=== PATIENT | male | born 1965 | race Caucasian/White ===

== ENCOUNTER 2021-07-29 14:52 | Outpatient (CLI) | payer OTHER, SELFPAY ==
--- NOTE | 2021-07-29 14:58 | XR_ITS ---
WS: [id number] KUB, AP view, 07/29/2021 Clinical Data: ABDOMINAL PAIN/ACUTE BACK PAIN Comparison: None. Findings: No abnormal intraabdominal masses or calcifications are seen. There is no dilatated small bowel or ev idence of obstruction. There are phleboliths in the true pelvis. There are clips in the right upper quadrant from a cholecys tectomy. XR/XR KUB [id number] Impression: Negative KUB.
== END 2021-07-29 14:53 | disposition home or self-care (01) ==
LOC: RAD 14:56
PROVIDERS: PCP Electrodiagnostic Medicine; Visit Provider Electrodiagnostic Medicine
DX: R10.9 Unspecified abdominal pain (principal)
CPT/HCPCS: 74018

== ENCOUNTER 2021-12-23 11:12 | Outpatient (CLI) | payer OTHER, SELFPAY ==
--- NOTE | 2021-12-23 11:27 | XRR_ITS ---
PROCEDURE INFORMATION: Exam: XR Chest Exam date and time: 12/23/2021 11:27 AM Age: 56 years old Clinical indication: Prior surgery; Surgery type: Gb; Patient HX: Cough for 1 1/2 years, worse after covid 1 1/2 months; Additional info: Cough, mob TECHNIQUE: Imaging protocol: XR of the chest. Views: 2 views. COMPARISON: CR XR KUB [id number] 07/29/2021 3:03 PM FINDINGS: Lungs: Unremarkable. No consolidation. Pleural spaces: Unremarkable. No pleural effusion. No pneumothorax. Heart/Mediastinum: Unremarkable. No cardiomegaly. Bones/joints: Unremarkable. XR/XR chest 2V* [id number] IMPRESSION: No acute findings.
== END 2021-12-23 11:13 | disposition home or self-care (01) ==
LOC: RAD 11:18
PROVIDERS: PCP Electrodiagnostic Medicine; Visit Provider Clinical Nurse Specialist Adult Health
DX: R05.9 Cough, unspecified (principal)
CPT/HCPCS: 71046

== ENCOUNTER 2024-02-20 07:07 | Outpatient (CLI) | payer OTHER, SELFPAY ==
--- NOTE | 2024-02-20 07:16 | CT_ITS ---
WS: [id number] CT ABDOMEN AND PELVIS WITH AND WITHOUT CONTRAST HISTORY: COLITIS, RIGHT pain with bloody stools. TECHNIQUE: Unenhanced 5 mm axial imaging first performed through the abdomen. Post contrast imaging t hrough the abdomen and pelvis. Oral contrast has been provided. Sagittal and coronal reformats are s ubmitted. All CT scans at [facility] use at least one of these dose optimization techniques: automated exposure control; mA and/or kV adjustment per patient size (includes targeted exams where d ose is matched to clinical indication); or iterative reconstruction. CONTRAST: Omnipaque 350; 95 mL IV. DLP: 799.29 mGy.cm COMPARISON: None available. Lung bases are clear. Normal size heart. Moderate hiatal hernia. There is an additional very subtle a rosalind of increased soft tissue at the GE junction with mass effect upon the oral contrast in the stomac h. Neoplasm needs to be excluded. Vague area of masslike projection measures 2.6 x 2.2 cm. Remaining stomach is negative. Normal size liver. There are several too small to characterize hypodensities in the RIGHT lobe of the liver. No bile duct dilatation. Normal portal vein. Prior cholecystectomy. Normal spleen. Normal orozco creas. Normal adrenal glands. No renal obstruction or mass. No perinephric stranding. Mild atheroscle rosis aorta. No aneurysm. No ascites. There are a few small retroperitoneal lymph nodes which are not pathologically enlarged. No small bowel obstruction. There is some very mild wall thickening involving the cecum and ascending colon. There is no obstructive process or mass. Recommend additional evaluation by colonoscopy. Mode rate diverticular disease. No obstruction. Normal appendix. Abdominal wall is intact. Small distended urinary bladder with prostate gland enlargement and encroachment. Prostate gland is m ildly heterogeneous. CT/CT abdomen pelvis wo/w [id number] IMPRESSION: 1. Possible soft tissue mass at the GE junction. Masslike structure measuring 2.6 x 2.2 cm at the GE junction with displacement of the adjacent oral contrast . Recommend upper endoscopy to exclude neoplasm. 2. There are a few scattered hypodensities in the liver which are too small to characterize. Differential includes too small to characterize hepatic cysts ve rsus early metastatic disease. 3. Normal appendix. 4. Mild scattered areas of wall thickening involving the ascending and transve rse colon. No masslike structure or obstruction. Colon would be better evaluate d by colonoscopy. 5. Moderate diverticular disease without acute diverticulitis. 6. Prostate gland enlargement.
[2024-02-20] MEDS: iohexol 300 mg/mL 100 mL Btl IV ×2 (08:13→08:32)
== END 2024-02-20 07:08 | disposition home or self-care (01) ==
LOC: RAD 07:09
PROVIDERS: PCP Electrodiagnostic Medicine; Visit Provider Family Medicine
DX: K52.9 Noninfective gastroenteritis and colitis, unspecified (principal); K57.90 Diverticulosis of intestine, part unspecified, without perforation or abscess without bleeding; N40.0 Benign prostatic hyperplasia without lower urinary tract symptoms
CPT/HCPCS: 74178; Q9967

== ENCOUNTER 2024-08-02 16:27 | Outpatient (CLI) | payer OTHER, SELFPAY ==
--- NOTE | 2024-08-02 17:30 | MR_ITS ---
WS: [id number] MRI LEFT ELBOW WITHOUT CONTRAST. COMPARISON: Radiograph 08/02/2024 Multiplanar, multisequence imaging is performed without contrast. Complete tear of the biceps tendon with retraction. There is fluid at the radial tuberosity with no b iceps tendon insertion identified. Seen best on the sagittal images is a retracted redundant biceps t endon. Retraction of the tendon by approximately 7 cm. There is additional edema in the biceps muscle which is only partially visualized. There is fluid around the muscle and within the adjacent soft ti ssues. Radio brachialis tendon and muscle are negative. No additional tendon abnormality. There is no marrow edema or fracture. No significant joint effusion. The extensor and flexor tendons and the radial and ulnar collateral ligaments appear appropriate. No tears are identified. No loose bodies. MR/MR elbow LT wo con* [id number] IMPRESSION: 1. Complete tear of the biceps tendon from the radial tuberosity with retracti on at least 7 cm. 2. Large amount of edema and fluid in the visualized biceps muscle and adjacen t soft tissues. 3. No fractures.
== END 2024-08-02 16:28 | disposition home or self-care (01) ==
PROVIDERS: PCP Electrodiagnostic Medicine; Visit Provider Nurse Practitioner
DX: S46.212A Strain of muscle, fascia and tendon of other parts of biceps, left arm, initial encounter (principal); X58.XXXA Exposure to other specified factors, initial encounter
CPT/HCPCS: 73080; 73221

== ENCOUNTER 2024-08-08 06:00 | Outpatient (CLI) | payer OTHER, SELFPAY | END 2024-08-08 23:59 | disposition home or self-care (01) | LOC: SOT 08-10 10:07 | PROVIDERS: PCP Electrodiagnostic Medicine; Visit Provider Nurse Practitioner | DX: Z46.89 Encounter for fitting and adjustment of other specified devices (principal); S46.122D Laceration of muscle, fascia and tendon of long head of biceps, left arm, subsequent encounter; X58.XXXD Exposure to other specified factors, subsequent encounter | CPT/HCPCS: L3761 ==

== ENCOUNTER → 2024-08-08 16:02 | Outpatient (BNVA) | payer OTHER, SELFPAY | PROVIDERS: PCP Electrodiagnostic Medicine; Visit Provider Nurse Practitioner | DX: S46.212A Strain of muscle, fascia and tendon of other parts of biceps, left arm, initial encounter (principal); X58.XXXA Exposure to other specified factors, initial encounter | CPT/HCPCS: 36415; 80053; 81003; 85025 ==

== ENCOUNTER 2024-08-09 08:03 | Day surgery (SDC) | payer OTHER, SELFPAY ==
[2024-08-09] VITALS (11 sets, daily range): BP systolic 129–153; BP diastolic 76–98; PULSE 74–98; RESP 10–18; TEMP 36.3–36.7; O2SAT 95–99; BMI 26.6
[2024-08-09] MEDS: sodium chloride 0.9% 1,000 ML 30 ML IV (08:47)
[2024-08-09] MEDS: gabapentin 300 mg Capsule PO (08:49)
[2024-08-09] MEDS: CELEcoxib 200 mg Capsule 400 MG PO (08:49)
--- NOTE | 2024-08-09 08:58 | ANES.PREANE2 ---
Pre-Anesthetic Assessment Height/Weight: Height 5 ft 7 in Weight 170 lb Temp Pulse Resp BP Pulse Ox O2 Del Method 98.0 F 78 16 153/98 96 Room Air 08/09/24 08:24 08/09/24 08:24 08/09/24 08:24 08/09/24 08:24 08/09/24 08:24 08/09/24 08:24 Preop Diagnosis: Biceps tendon rupture Operation Date: 08/09/24 09:45 Proposed Procedures p LEFT DISTAL BICEPS TENDON REPAIR(Left) - Manuela Wilkerson MD Was Beta Anand taken within 24 hours: N/A Was Clonidine taken within 24 hours: N/A Last intake: Intake Last Liquid Date 08/08/24 Last Liquid Time 22:10 Last Solid Date 08/08/24 Last Solid Time 22:10 Social No alcohol and No tobacco Exam alert, oriented x 3, clear to auscultation bilaterally and regular rate & rhythm Airway Submandibular: within normal limits Cervical ROM: within normal limits Mallampati: Class II Dentition: full Anesthetic Plan ASA status: 2 Anesthesia: MAC and Regional (specify below) Other: Patient states that he wakes up combative from anesthesia NPO since yesterday History of GERD on omeprazole, hiatal hernia Labs 08/08/2024 reviewed and acceptable for procedure Patient denies any pulmonary issues METs greater than 4 Plan for MAC anesthetic with preop nerve block Medications/Allergies Home Medications Medication Instructions Recorded Confirmed Last Taken Type hydrocortisone acetate 25 mg 25 mg AZ BID 08/02/24 08/08/24 Unknown History rectal suppository (Anucort-HC) omeprazole 40 mg capsule,delayed 40 mg PO DAILY 08/02/24 08/08/24 08/08/24 History release range of motion elbow brace #1 ea 08/08/24 08/08/24 Unknown Rx Allergies Allergy/AdvReac Type Severity Reaction Status Date / Time No Known Allergies Allergy Unverified 08/08/24 15:08 Current Medications Generic Name Dose Route Start Last Admin Trade Name Freq PRN Reason Stop Dose Admin Sodium Chloride 1,000 mls @ 30 mls/hr 08/09/24 08:15 08/09/24 08:47 Sodium Chloride 0.9% IV 08/10/24 08:14 30 mls/hr .Q24H ASHELY Administration PFSH Anesthesia Social History Smoking and tobacco/nicotine status: never used tobacco/nicotine Data Anesthesia Cardiac Studies: No Data to Display
--- NOTE | 2024-08-09 09:20 | ANES.PROC ---
Anesthesia Procedures Procedure/Date: 08/09/24 Nerve Block ^: Nerve Block 1: Main Anesthesia: other (100mg fentanyl, 2mg versed) Time Out Performed: Yes Consent: requested by attending/covering physician and from patient Nerve block location: supraclavicular Anesthesia monitors applied: pulse oximetry, EKG, BP cuff and oxygen Nerve block position: supine Anesthetic Used: ropivicaine 0.5% Amount of anesthesia used (mL): 30 Ultrasound used to: recognize landmarks Nerve Stimulator Used?: Yes Interscalene/Femoral BLK: other needle (pjunk 4inch) Injection: neg aspiration of heme Patient Tolerated Procedure: well Complications: none Additional Comments: decadron 4mg added to block
--- NOTE | 2024-08-09 09:22 | SUR.PREOP ---
LEFT SUPRACLAVICULAR BLOCK DONE. 30ML/150MG ROPIVACAINE. PATIENT MONITORED ON EKG, PULSE OX WITH 2L NASAL CANNULA, BP MONITOR. VSS. PATIENT TOLERATED WELL.
[2024-08-09] MEDS: ondansetron 2 mg/ML SDV 2 mL 4 MG IVP (09:59)
[2024-08-09] MEDS: scopolamine 1.5 Patch 1 PATCH TRANSDERMA (10:00)
--- NOTE | 2024-08-09 10:04 | SUR.PREOP ---
Patient started feeling nauseous and hot in pre op after block. PAtients heart rate got to 40bpm. Anesthesia assessed patient. Gave patient zofran. Heart rate back to 80s and patient feeling better. still on monitors. VSS
--- NOTE | 2024-08-09 10:11 | W.PM.OPSUD ---
Surgery/Procedure H&P Update DATE OF PROCEDURE: August 09, 2024 DATE H&P PERFORMED: 08/08/24 H&P UPDATE INFORMATION: I have reviewed H&P completed within last 30 days, I have examined patient prior to procedure, No changes to prior documentation and H&P is in [facility] [place] EMR on date indicated PREOP DIAGNOSIS: Biceps tendon rupture PLANNED PROCEDURE: Operation Date: 08/09/24 09:45 Proposed Procedures p LEFT DISTAL BICEPS TENDON REPAIR(Left) - Manuela Wilkerson MD Related Problem List Diagnoses (1) Biceps rupture, distal: Qualifiers: Encounter type: initial encounter Laterality: left Qualified Code(s): S46.212A - Strain of muscle, fascia and tendon of other parts of biceps, left arm, initial encounter
[2024-08-09] MEDS: ceFAZolin 2,000 mg SDV 2000 MG IVP (10:17)
[2024-08-09] MEDS: ceFAZolin 1,000 mg SDV 1000 MG IRRIGATION (12:29)
--- NOTE | 2024-08-09 13:41 | P.OP_ITS ---
Operative Report Date of procedure: August 09, 2024 Pre-op diagnosis: Distal biceps tendon tear left elbow Post-op diagnosis: Distal biceps tendon tear left elbow with soft tissue adhesion and significant retraction Post-op findings: Significantly retracted distal biceps tendon left with significant adhesion of the distal tendon to soft tissues. Procedure done: Repair left distal biceps tendon utilizing the Arthrex distal biceps button, second incision required to retrieve the retracted tendon Implants: Arthrex distal biceps tendon button Specimens removed/disposition: None Pathology: None Surgeon: Manuela Wilkerson MD Director Of Cloud Services: [place] Roque, who services were required for positioning, retraction, closure, and completion of the surgical procedure. Anesthesia: General (Intubated, ASA 2) Estimated blood loss (mL): 10 Tourniquet time (min): 78 (At 250 mmHg) IV fluids (mL): 1,000 Urine output (mL): 0 (No Pat) Complications: None Findings: Significant retraction of the distal biceps tendon. Condition: stable Disposition: PACU (Then return to same-day surgery for discharge to home) Brief History: This 58-year-old gentleman presented to the office with a history indicating possible distal biceps tendon rupture. The patient was then sent to the MRI urgently, an MRI demonstrated a distal biceps tendon tear with at least 7 cm of retraction. The patient had some work commitments which precluded him from going immediately to surgery, and he presents today approximately 2 weeks from his date of injury. He has known retraction of at least 7 cm. He has been in a sling since the time of his injury. Risks and complications of surgery were discussed with him, and consents were signed preoperatively in the office. Procedure: The patient was brought to the operating theater. The patient had a general anesthesia intubated, ASA 2. Tourniquet was placed after prepping and draping. The tourniquet utilized was a sterile tourniquet. The patient was also given Ancef 2 g preoperatively. The arm was then prepped and draped with DuraPrep in usual fashion with the arm draped free. A surgical pause was performed. At the time, the surgical pause, we confirmed the site and side of surgery. We also confirmed the patient's identity, appropriate and timely administration of preoperative antibiotics and preoperative surgical markings. Preoperatively, the elbow was palpated, and there was complete disruption of the patellar tendon consistent with MRI findings. The MRI demonstrated at least 7 mm proximal retraction of the biceps tendon, and this was obtained approximately 1 week ago. Intraoperatively, fluoroscopy was used to determine appropriate level for the biceps tuberosity. An incision was made horizontally centering over the tuberosity approximately 2 inches distal to the elbow crease. Skin was incised and blunt dissection was used to enter and dissect down onto the radius. Radial tuberosity was palpable. There was complete disruption of the distal portion of the biceps tendon. The tuberosity was evaluated. Soft tissue was removed from this area. Fluoroscopy was utilized to identify the tuberosity as the correct position for placement of the pin. At this point, attention was directed to finding the proximal biceps tendon. Palpation proximally with my small finger did not demonstrate the tendon. I was able to palpate the canal for the biceps tendon, but it was retracted further than this. Attempt was made to milk the tendon down into the canal, but this also did not yield the proximal tendon. Therefore, the decision was made to make a more proximal incision over the distal aspect of the arm in the area approximately 3 inches proximal to the elbow crease. This was felt to be the appropriate position to find the tendon based upon palpation and the MRI. This incision was also horizontal, and soft tissues were dissected bluntly. Upon entry into the area of the distal biceps tendon, fluid was encountered. Therefore, we knew we are in the proper place in plane to find the biceps tendon. The more proximal biceps tendon was identified and it was tracked distally. There was significant adhesion of the biceps tendon to the soft tissues in the very proximal portion of the canal leading to the radial tuberosity. This required blunt dissection to free the biceps tendon from the surrounding tissues. We were able to deliver the biceps tendon into the proximal wound. I was able to pass a tendon passer from proximal to distal through the biceps canal to malu its location. AN 0 Vicryl was passed through this area and tied over the skin to maintain ability to identify the appropriate canal for this biceps tendon. The biceps tendon was freshened with a scalpel. And then a baseball type whipstitch was placed with multiple passes through the tendon while we progressed distally to tubularized the tendon and prepare it for placement into the distal attachment point. Utilizing the suture, we were able to tie the suture which was through the distal biceps tendon to the 0 Vicryl that was in the canal, and in this fashion, we were able to pass the biceps tendon into the canal distally. Even with the freeing that have been accomplished of this tendon, it would not reach the radial tuberosity. Further gentle dissection was accomplished in an attempt to free it. We were able to remove the tourniquet and at that time we had more biceps tendon and it freely moved within the canal. Attention at this point was directed to placement of the Arthrex distal biceps tendon button. Soft tissue retractors were placed in appropriate position. The tuberosity was identified. K wire was passed from the tuberosity through the opposite cortex and what was visualized on fluoroscopy to be in appropriate position. At that point, the button was to be utilized. Before removal of the guidewire, the radial tuberosity cortex was drilled to allow for placement of an interference screw. After this had been accomplished, we were able to pass the tendon which was attached to the Arthrex button through the 2 cortices. On fluoroscopy, the button was noted to be flipped and flattened against the radius. The arm was placed in approximately 70 degrees of flexion, and the tendon was passed into the canal utilizing a seesaw type technique which was appropriate for this button. Interference screw was to be placed, but as the tendon was tightened into the canal, the button pulled through the opposite cortex. At that point, attention was redirected to placement of the button. Again, the button was passed through the second cortex. Attempt was made to pass the tendon into the canal. The biceps button flipped once again before placement of the interference screw. Therefore, it was repositioned and the tendon was tightened into the canal in appropriate position. The position of the button was confirmed in AP and lateral planes. At that point, the interference screw was placed uneventfully, and attention was directed to closure. Both wounds were copiously irrigated. PRP was placed prior to closure. This was injected around the area of the repair. Following this, closure was accomplished with 3-0 Monocryl in the subcutaneous tissues. 4-0 running subcuticular was placed in the skin. Following this, Dermabond was placed with Steri-Strips and an OpSite. An ABD, followed by sterile soft roll, and an Ar wrap was used to complete the dressing. The patient was then placed in a hinged elbow brace locked at approximately 90 degrees of flexion. The patient was returned to recovery room in a satisfactory condition where he discharged home to follow-up in the office. There were no specimens. The procedure was well-tolerated. Preoperatively, the patient had a regional block. Related Problem List Diagnoses (1) Biceps rupture, distal:
--- NOTE | 2024-08-09 14:44 | XR_ITS ---
WS: [id number] Left elbow, C-arm fluoroscopy views, 08/09/2024 Clinical Data: OR PIC, bicep repair Comparison: Left elbow x-ray Findings: Dr. Wilkerson repaired the biceps tendon tear. XR/XR elbow LT min 3V* [id number] Impression: Repair of a biceps tendon tear
== END 2024-08-09 15:58 | disposition home or self-care (01) ==
PROVIDERS: PCP Electrodiagnostic Medicine; Visit Provider Specialist
PROC: (CPT 23430; principal; 2024-08-09 09:45)
DX: S46.112A Strain of muscle, fascia and tendon of long head of biceps, left arm, initial encounter (principal); X58.XXXA Exposure to other specified factors, initial encounter; K21.9 Gastro-esophageal reflux disease without esophagitis
CPT/HCPCS: 24342; 73080; 76000; C1713; J0690; J1100; J2371; J2405; J2704; J3010; J3490; J7030

== ENCOUNTER → 2024-10-17 13:38 | Outpatient (BNVA) | payer OTHER, SELFPAY | PROVIDERS: PCP Electrodiagnostic Medicine; Visit Provider Nurse Practitioner | DX: Z98.890 Other specified postprocedural states (principal); S46.212D Strain of muscle, fascia and tendon of other parts of biceps, left arm, subsequent encounter; X58.XXXD Exposure to other specified factors, subsequent encounter | CPT/HCPCS: 73080; 99024 ==

== ENCOUNTER 2025-09-20 11:46 | Outpatient (CLI) | payer OTHER, SELFPAY ==
--- NOTE | 2025-09-20 | ECG_ITS ---
[facility] Date: 2025-09-20 Pat Name: Brendan Arvizu Department: Room: Gender: Male Roller Operator: : 1965 Requested By: Santhosh Smart Order Number: [id number] De Oliveira MD: Timo Ramsay M.D. Interpretive Statements Findings: The patient exercised on the treadmill using the Artemio protocol for a total of 9 minutes achieving a maximum heart rate of 153 bpm which was 95% of the patient's maximal predicted heart rate. The patient achieved 10.2 METS. The maximum blood pressure was 220/113. Baseline blood pressure was 160/95. Blood pressure at the end of recovery was 165/84. Baseline EKG showed normal sinus rhythm with intraventricular conduction delay and poor R wave progression. There were occasional PVCs and 1 ventricular couplet during exercise. There were no ST or T wave changes. CONCLUSION: 1. Exercise capacity was above average for age. 2. Heart rate response was appropriate. 3. Blood pressure response was appropriate. 4. No symptoms of angina during exercise. 5. Electrocardiogram portion of the stress test without evidence of ischemia. 6. Occasional premature ventricular contractions and 1 ventricular couplet during exercise. Electronically Signed On 09-20-2025 18:45:42 ANIMAL CONTROL SPECIALIST by Timo Ramsay M.D. [email or web address]
[2025-09-20 11:57] VITALS: BMI 27.4
[2025-09-20 12:30] VITALS: BP 165/84; PULSE 97
== END 2025-09-20 11:47 | disposition home or self-care (01) ==
LOC: CDL 11:53
PROVIDERS: PCP Electrodiagnostic Medicine; Visit Provider Electrodiagnostic Medicine
DX: R00.2 Palpitations (principal)
CPT/HCPCS: 93017

== ENCOUNTER 2025-10-02 11:10 | Outpatient (CLI) | payer OTHER, SELFPAY ==
--- NOTE | 2025-10-02 11:22 | USCV_ITS ---
Delmereri Brendan Age: 60 Gender: M : 1965 Exam Date: 10/02/2025 11:51 Ordering Phys: Santhosh Ahmadi DO Technologist: Exam Location: [facility] [place] Indication: cp sob BP: 120 / 70 HR: 64 Rhythm: Sinus Technical Quality: Adequate MEASUREMENTS (Male / Female) Normal Values 2D ECHO LV Diastolic Diameter PLAX 4.1 cm 4.2 - 5.9 / 3.9 - 5.3 cm IVS Diastolic Thickness 1.3 cm 0.6 - 1.0 / 0.6 - 0.9 cm IVS Systolic Thickness 1.5 cm LVPW Diastolic Thickness 1.4 cm 0.6 - 1.0 / 0.6 - 0.9 cm LVPW Systolic Thickness 1.7 cm LVOT Diameter 1.9 cm LV Ejection Fraction 2D Teich 64.8 % LV Ejection Fraction MOD 4C 69.1 % LV Ejection Fraction MOD 2C 53.4 % LV Ejection Fraction 2C AL 54.2 % LA Diameter 3.8 cm RA Systolic Volume 4C AL 39.1 ml RA Systolic Volume 4C MOD 37.4 ml LA Sys Volume AL 50.8 cm cubed LA Sys Volume Index AL 26.4 cm cubed/m squared Aorta at Sinotubular Diameter 3.2 cm IVC Diameter 1.7 cm M-MODE LA Ao Ratio MM 1.3 AV Cusp Separation MM 2.3 cm DOPPLER AV Peak Velocity 128.0 cm/s AV Area Cont Eq vti 2.7 cm squared AV Area Cont Eq pk 2.3 cm squared MV Peak Velocity 82.0 cm/s MV Area PHT 4.0 cm squared Mitral E to A Ratio 1.3 TR Peak Velocity 160.0 cm/s TR Peak Gradient 10.2 mmHg TV Peak E Velocity 160.0 cm/s PV Peak Velocity 124.0 cm/s FINDINGS Left Ventricle Normal left ventricular size, Low normal systolic function and wall thickness, with no regional wall motion abnormalities. Left ventricular ejection fraction is estimated at 53 %. Grade II/IV diastolic dysfunction, moderately elevated filling pressures. Right Ventricle Normal right ventricular size and systolic function. Right Atrium Normal right atrial size. Left Atrium Moderately increased left atrial size. IA Septum Normal appearance of the interatrial septum. Mitral Valve Structurally normal mitral valve. No mitral valve stenosis. Trace to mild mitral valve regurgitation. Aortic Valve Aortic valve sclerosis. No aortic valve stenosis. Trace aortic valve regurgitation. Tricuspid Valve Normal tricuspid valve structure. No tricuspid valve stenosis or regurgitation. Normal pulmonary pressure. Pulmonic Valve Normal pulmonic valve structure. No pulmonic valve stenosis or regurgitation. Pericardium No pericardial effusion. Aorta Normal diameter of the aortic root and ascending thoracic aorta. IVC Normal IVC diameter. CONCLUSIONS Normal left ventricular size, Low normal systolic function and wall thickness, with no regional wall motion abnormalities. Left ventricular ejection fraction is estimated at 53 %. Grade II/IV diastolic dysfunction, moderately elevated filling pressures. Structurally normal mitral valve. No mitral valve stenosis. Trace to mild mitral valve regurgitation. Aortic valve sclerosis. No aortic valve stenosis. Trace aortic valve regurgitation. There is no pericardial effusion. Right atrial pressure is around 5 mm of mercury. Myra To MD (Electronically Signed) Final Date: 13 October 2025 14:40 S
== END 2025-10-02 11:11 | disposition home or self-care (01) ==
LOC: RAD 11:13
PROVIDERS: PCP Electrodiagnostic Medicine; Visit Provider Electrodiagnostic Medicine
DX: R00.2 Palpitations (principal); R93.1 Abnormal findings on diagnostic imaging of heart and coronary circulation; I51.7 Cardiomegaly; I34.0 Nonrheumatic mitral (valve) insufficiency; I35.8 Other nonrheumatic aortic valve disorders
CPT/HCPCS: 93306